=== PATIENT | male | born 1995 | race Two or more races ===

== ENCOUNTER 2019-12-21 10:37 | Emergency (ER) | payer SELFPAY ==
[~2019-12-21] VITALS: Ht 172.7 cm; Wt 133.5 kg
[2019-12-21 10:54] VITALS: BP 151/82
[2019-12-21] MEDS ORDERED: methylPREDNISolone SOD SUCC PF 125 MG/2 ML VIAL. IM ONE (11:15)
[2019-12-21] MEDS ORDERED: TRIA15OI9 TP (11:17)
--- NOTE | 2019-12-21 11:17 | PHYS DOC ---
General Adult EDM: Chief Complaint: LOWER EXTREMITY SWELLING HPI: HPI: Patient is a 24 year old male presented with itching rash on both of his entire lower extremities for 10 days. He developed the rash after he was outside cutting grass and weed wearing short. He denied any shortness of air or chest pain. Review of Systems: Review of Systems: Constitutional: Denies fever or chills. [] Eyes: Denies change in visual acuity. [] HENT: Denies nasal congestion or sore throat. [] Respiratory: Denies cough or shortness of breath. [] Cardiovascular: Denies chest pain or edema. [] GI: Denies abdominal pain, nausea, vomiting, bloody stools or diarrhea. [] : Denies dysuria. [] Musculoskeletal: Denies back pain or joint pain. [] Integument: Positive for rash on lower extremities. Neurologic: Denies headache, focal weakness or sensory changes. [] Endocrine: Denies polyuria or polydipsia. [] Lymphatic: Denies swollen glands. [] Psychiatric: Denies depression or anxiety. [] Heart Score: Risk Factors: Risk Factors: DM, Current or recent (<one month) smoker, HTN, HLP, family history of CAD, obesity. Risk Scores: Score 0 - 3: 2.5% MACE over next 6 weeks - Discharge Home Score 4 - 6: 20.3% MACE over next 6 weeks - Admit for Clinical Observation Score 7 - 10: 72.7% MACE over next 6 weeks - Early Invasive Strategies Current Medications: Current Medications Medications (Trade) Dose Ordered Sig/[facility] Start Time Stop Time Status Last Admin Dose Admin Methylprednisolone Sodium Succinate (SOLU-Medrol 125MG VIAL) 125 mg 1X ONCE 12/21/19 11:15 12/21/19 11:16 Allergies: Allergies: Allergies Coded Allergies Type Severity Reaction Last Updated Verified No Known Drug Allergies 12/21/19 No Physical Exam: PE: Constitutional: Well developed, well nourished, no acute distress, non-toxic appearance. [] HENT: Normocephalic, atraumatic, bilateral external ears normal, oropharynx moist, no oral exudates, nose normal. [] Eyes: PERRLA, EOMI, conjunctiva normal, no discharge. [] Neck: Normal range of motion, no tenderness, supple, no stridor. [] Cardiovascular:Heart rate regular rhythm, no murmur [] Lungs & Thorax: Bilateral breath sounds clear to auscultation [] Abdomen: Bowel sounds normal, soft, no tenderness, no masses, no pulsatile masses. [] Skin: Warm, dry, maculopapular rash on both legs up to his thighs. Back: No tenderness, no CVA tenderness. [] Extremities: No tenderness, no cyanosis, no clubbing, ROM intact, no edema. [] Neurologic: Alert and oriented X 3, normal motor function, normal sensory function, no focal deficits noted. [] Psychologic: Affect normal, judgement normal, mood normal. [] EKG: EKG: [] Radiology/Procedures: Radiology/Procedures: [] Course & Med Decision Making: Course & Med Decision Making Pertinent Labs and Imaging studies reviewed. (See chart for details) [] Dragon Disclaimer: Dragon Disclaimer: This electronic medical record was generated, in whole or in part, using a voice recognition dictation system. Departure Departure Impression: Primary Impression: Contact dermatitis Disposition: 01 HOME, SELF-CARE Condition: STABLE Referrals: NON,STAFF (PCP) please follow up with your doctor in 2-3 days for reevaluation Patient Instructions: Contact Dermatitis Scripts Triamcinolone Acetonide (TRIAMCINOLONE ACETONIDE 0.5% OINT) 15 Gm Oint...g. 1 MATILDE TP TID, #90 GM 0 Refills apply to affected area(s) Prov: DILEEP BRYAN DO 12/21/19 Justicifation of Admission Dx: Justifications for Admission: Justification of Admission Dx: N/A Aspiration Pneumonia: Hemodynamic Instability DILEEP BRYAN DO Dec 21, 2019 11:17
== END 2019-12-21 11:45 | disposition home or self-care (01) ==
LOC: ER 10:37
DX: L25.8 Unspecified contact dermatitis due to other agents (principal); R60.0 Localized edema
CPT/HCPCS: 96372; 99283; J2930